=== PATIENT | female | born 1945 | race Caucasian/White ===

== ENCOUNTER 2023-05-28 10:50 | Outpatient (CLI) | payer BC, SELFPAY ==
--- NOTE | ~2023-05-28 | MR_ITS ---
MRI of the left knee Clinical history: Pain, effusion Technique: Coronal proton density and proton density-weighted images, sagittal proton-density and T2 fat-sat images, and axial proton-density fat-saturated images were acquired. Findings: Anterior and posterior cruciate ligaments are intact. Medial collateral ligament and the la teral collateral ligament complex are intact. Popliteus tendon is intact. There is radial tear at the posterior root of the medial meniscus. No lateral meniscal tear identifie d. There is diffuse grade IV chondromalacia the medial femoral condyle and at the lateral tibial plateau the joint line. There is a subchondral insufficiency fracture at the medial tibial plateau region wi th extensive amorphous surrounding marrow edema. Articular cartilage in the lateral compartment is we ll preserved. There is high-grade chondral lesion at the patellar apex, and mild to moderate chondral malacia the femoral trochlea. Extensor mechanism is intact. Small joint effusion present. Small Tinajero cyst present. There is subcut aneous soft tissue edema, nonspecific. Impression: Radial tear at the posterior root of the medial meniscus. Subchondral insufficiency fracture of the medial tibial plateau with extensive surrounding amorphous marrow edema. 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 Small joint effusion with small Tinajero's cyst. Reviewed, dictated and finalized at location . Impression: Radial tear at the posterior root of the medial meniscus. Subchondral insufficiency fracture of the medial tibial plateau with extensive surrounding amorphous marrow edema. 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 Small joint effusion with small Tinajero's cyst.
== END 2023-05-28 10:51 ==
LOC: MICIMG 10:52
PROVIDERS: PCP Nurse Practitioner Adult Health; Visit Provider Nurse Practitioner Adult Health
DX: M25.462 Effusion, left knee (principal); M94.262 Chondromalacia, left knee; S83.242A Other tear of medial meniscus, current injury, left knee, initial encounter; S82.132A Displaced fracture of medial condyle of left tibia, initial encounter for closed fracture; X58.XXXA Exposure to other specified factors, initial encounter
CPT/HCPCS: 73721

== ENCOUNTER 2023-06-17 09:24 | Outpatient (CLI) | payer BC, SELFPAY ==
--- NOTE | ~2023-06-17 | XR_ITS ---
XR knee LT min 4V 06/17/2023 09:47 Indication: Left knee pain Procedure: 4 views left knee Comparison: No prior studies for comparison. Findings: There is mild osteoarthritis of the left knee. No fracture, subluxation or dislocation. No joint effusion. No foreign bodies. Impression: 1: Mild osteoarthritis of the left knee. Reviewed, dictated and finalized at location B. Impression: 1: Mild osteoarthritis of the left knee.
== END 2023-06-17 09:25 | disposition home or self-care (01) ==
PROVIDERS: PCP Nurse Practitioner Adult Health; Visit Provider Orthopaedic Surgery
DX: M17.12 Unilateral primary osteoarthritis, left knee (principal); M25.562 Pain in left knee
CPT/HCPCS: 73564

== ENCOUNTER 2023-06-26 09:32 | Outpatient (RCR) | payer BC, SELFPAY ==
--- NOTE | 2023-06-26 12:20 | OPREHPOC ---
Outpatient Therapy Plan of Care This is a Multidisciplinary Plan of Care that may contain components documented by all disciplines (PT, OT, and ST.) PT Problem 1 PT Problem #1 Knowledge Deficit PT Goal 1 Goal The patient will be independent in a home exercise program. Target Visit 12 PT Problem 2 PT Problem #2 Pain PT Goal 1 Goal The patient will report no greater than 2/10 left knee pain with daily activities. Target Visit 12 PT Problem 3 PT Problem #3 Impaired Range of Motion PT Goal 1 Goal The patient will demonstrate 130 degrees of left knee flexion to return to squatting and kneeling. Target Visit 12 PT Problem 4 PT Problem #4 Impaired Functional Mobil PT Goal 1 Goal 1. The patient will demonstrate less than 30% self perceived disability per the LEFS. 2. The patient will be able to ambulate 1,200 feet during the 6 minute walk test. Target Visit 12
--- NOTE | 2023-06-26 12:20 | PTOPEVAL1 ---
Assessment and note entered by Jana Abreu, PT Evaluation Information Assessment Status Evaluation Diagnosis left knee medial meniscus tear Onset 04/23/23 Subjective Information Linda Newell reports she injured her left knee on 04/23/23 she went to a farm show and had to go down 4 flights of stairs. She was about half way down and twisted her left foot and felt a pop in her knee. She had immediate pain in the left knee and could not extend her knee or walk. She reports she went to Dr. Rocha who ordered a x-ray and MRI. She was told she has a medial meniscus tear and debris floating in her knee. She also is close to bone on bone so he does not want to do surgery until she needs a knee replacement. She had a cortisone injection and was referred to PT. She reports the injection took away the acute pain . She has difficulty bending her left knee, squatting, and kneeling. She can not perform all the cleaning and has difficulty walking long distances. She reports she is very fearful of injuring the knee more. Reported Pain Level Pain Score 3: Self Report Assessment PT Clinical Summary Linda Newell presents with left knee pain following a twisting injury sustained on 04/23/23. She has been diagnosed with a medial meniscus tear . She has difficulty with walking, bending the knee, kneeling and squatting leading to difficulty performing daily activities and chores. She objectively demonstrates tenderness at the left patella tendon, decreased left knee flexion AROM, decreased L > R knee and hip strength, altered gait, and decreased functional abilities. She will benefit from skilled PT to address these limitations. Plan of Care Interventions Electrical Stimulation,Hot Pack/Cold Pack,Manual Therapy,Neuro Re-education,Patient/Caregiver Educati,Therapeutic Activities,Therapeutic Exercise PT Services Indicated Yes Treatment Frequency and 3 times a week for 12 visits Duration These treatments will address the objective and functional deficits as defined above. The patient will be advanced safely and appropriately in order for the patient to progress towards his/her prior level of function. Additional exercises will be introduced and as well as a comprehensive home exercise program upon discharge, if needed, ?to ensure carryover of functional gains achieved in the clinic. This treatment plan has been reviewed and agreement upon by the patient.
--- NOTE | 2023-07-18 13:33 | OPREHPOC ---
Outpatient Therapy Plan of Care This is a Multidisciplinary Plan of Care that may contain components documented by all disciplines (PT, OT, and ST.) PT Problem 1 PT Problem #1 Knowledge Deficit PT Goal 1 Goal The patient will be independent in a home exercise program. Target Visit 12 Progress Met PT Problem 2 PT Problem #2 Pain PT Goal 1 Goal The patient will report no greater than 2/10 left knee pain with daily activities. Target Visit 12 Progress Partially Met PT Problem 3 PT Problem #3 Impaired Range of Motion PT Goal 1 Goal The patient will demonstrate 130 degrees of left knee flexion to return to squatting and kneeling. Target Visit 12 Progress Met PT Problem 4 PT Problem #4 Impaired Functional Mobil PT Goal 1 Goal 1. The patient will demonstrate less than 30% self perceived disability per the LEFS. progressing 2. The patient will be able to ambulate 1,200 feet during the 6 minute walk test. progressing Target Visit 12
--- NOTE | 2023-07-18 13:34 | PTOPPROGNS ---
Assessment and note entered by JT File, PT Evaluation Information Assessment Status Progress Diagnosis left knee medial meniscus tear Onset 04/23/23 Subjective Information patient reports she feels good today. she reports she has no pain. she reports her knee is improving, but reports she still would like to be able to kneel on the floor and sit back on her heels to clean house. Assessment PT Clinical Summary mrs. shelton presents to skilled PT for her 10th skilled therapy visit. she has been compliant with her HEP thus far in therapy. she displays improved rom of the L knee, and progress towards functional and pain goals. she would benefit from continued skilled PT to achieve her remaining goals, and functional ability to sit on knees to care for/clean home. Plan of Care Interventions Electrical Stimulation,Hot Pack/Cold Pack,Manual Therapy,Neuro Re-education,Patient/Caregiver Educati,Therapeutic Activities,Therapeutic Exercise PT Services Indicated Yes Treatment Frequency and continue skilled PT for 2 more visits per initial Duration POC These treatments will address the objective and functional deficits as defined above. The patient will be advanced safely and appropriately in order for the patient to progress towards his/her prior level of function. Additional exercises will be introduced and as well as a comprehensive home exercise program upon discharge, if needed, ?to ensure carryover of functional gains achieved in the clinic. This treatment plan has been reviewed and agreement upon by the patient.
--- NOTE | 2023-07-22 10:35 | PCPTNOTE ---
I reviewed the License Pending Therapist's documentation and agree with the findings.
--- NOTE | 2023-07-24 10:36 | OPREHPOC ---
Outpatient Therapy Plan of Care This is a Multidisciplinary Plan of Care that may contain components documented by all disciplines (PT, OT, and ST.) PT Problem 1 PT Problem #1 Knowledge Deficit PT Goal 1 Goal The patient will be independent in a home exercise program. Target Visit 12 Progress Met PT Problem 2 PT Problem #2 Pain PT Goal 1 Goal The patient will report no greater than 2/10 left knee pain with daily activities. Target Visit 12 Progress Met PT Problem 3 PT Problem #3 Impaired Range of Motion PT Goal 1 Goal The patient will demonstrate 130 degrees of left knee flexion to return to squatting and kneeling. Target Visit 12 Progress Met PT Problem 4 PT Problem #4 Impaired Functional Mobil PT Goal 1 Goal 1. The patient will demonstrate less than 30% self perceived disability per the LEFS. progressing 2. The patient will be able to ambulate 1,200 feet during the 6 minute walk test. progressing Target Visit 12 Progress Partially Met
--- NOTE | 2023-07-24 10:36 | PTOPDC ---
Assessment and note entered by JT File, PT Evaluation Information Assessment Status Discharge Diagnosis left knee medial meniscus tear Onset 04/23/23 Subjective Information patient reports she feels good today. she reports she has no pain. she reports she is back to driving and performing all prior level activities. she reports she is compliant with her HEP at home. she reports she is ready to DC therapy today. Reported Pain Level Pain Score 0: Self Report Pain Score 1: Self Report Assessment PT Clinical Summary mrs. shelton presents to skilled PT services for her 12th skilled PT visit. she presents today with no pain, full active rom, and normal L knee strength . she has met goals for hep performance, pain, rom as of this date. she has also made partial achievement of functional mobility goals. she will DC skilled PT today, and continue with HEP independent at home. Plan of Care PT Services Indicated Yes
--- NOTE | 2023-07-24 10:38 | PCPTNOTE ---
I reviewed the License Pending Therapist's documentation and agree with the findings.
== END 2023-07-24 10:45 | disposition home or self-care (01) ==
LOC: CHSPT 09:32
PROVIDERS: Visit Provider Orthopaedic Surgery
DX: S83.242D Other tear of medial meniscus, current injury, left knee, subsequent encounter (principal); S89.92XD Unspecified injury of left lower leg, subsequent encounter
CPT/HCPCS: 97014; 97110; 97112; 97150; 97161; 97530; G0283

== ENCOUNTER 2024-03-24 12:54 | Emergency (ER) | payer BC, SELFPAY ==
--- OUTSIDE RECORDS SUMMARY | 2024-03-24 13:49 | XMS_ITS | Encounter Summary ---
Author Organization [facility] Address [facility]. [place], [place] [address] [place] [address] Care Team Providers Care Commercial Lawn Specialist Name Role Phone Nithin Bowie NP Primary Care Provide r David Clifton MD Primary Care Provider [phone] Encounter Details Date Type Department Care Team (Late st Contact Info) Description 05/22/2023 mPATH Message Enc [facility] Family & Internal Medicine [address] [address] Nithin Bowie, TAI [address] [place] [address] Dr. [place], [place] [id number] MRI Order Social History Tobacco Use Types Packs/Day Years Used Date Smoking Tobacco: Never Smokeless Tobacco: Never Alcohol Use Standard Drinks/Week Comments Not Currently 0 (1 standard drink = 0.6 oz pur e alcohol) Comments Unknown Sex and Gender Information Value Date Recorded Sex Assigned at Not on file Legal Sex Female 11:53 AM CDT Gender Identity Not on file Sexual Orientation Not on file documented as of this encounter Plan of Treatment Not on file documented as of this encounter Visit Diagnoses Not on filedocumented in this encounter Care Teams Commercial Lawn Specialist Relationship Specialty Start Date End Date Nithin Bowie NP PCP - General NURSE PRACTITIONER ADULT HEALTH 05/14/23 09/14/23 [place] [address] [id number] PCP - General INTERNAL MEDICINE 09/15/23 documented as of this encounter
--- OUTSIDE RECORDS SUMMARY | 2024-03-24 13:49 | XMS_ITS | Clinical Summary ---
Author Organization [facility] Address [address] [place] [address] Phone Care Team Providers Care Desk Top Publisher Name Role Phone Sergio Steen MD Primary Care Provider [phone] Allergies Active Allergy Reactions Criticality Noted Date Comments Sulfa (Sulfonamide Antibiotics) Rash Low 07/2010 Medications ACETAMINOPHEN (TYLENOL ORAL) Take by mouth. Active enoxaparin (LOVENOX) 100 mg/mL subCUT Syrg Inject 0.899 mL by subcutaneous injection every 12 hours. 10 Syringe 0 1 Active warfarin (COUMADIN) 5 mg Oral tablet Take 2 Tabs by mouth Daily LATE. 30 Tab 6 1 Active warfarin (COUMADIN) 1 mg Oral tablet Take 1 Tab by mouth daily. 30 Tab 6 1 Active Active Problems Problem Noted Date Diagnosed Date MVP (mitral valve prolapse) 05/30/2010 Overview (06/04/2010): 06/04 Echo: EF 60-65%, structurally normal mitral valve, trivial MR, mild TR, PA 37 mmHg. Rheumatoid arthritis(714.0) 05/30/2010 DVT (deep venous thrombosis) 05/30/2010 Overview (01/11/2011): 1976 DVT in right calf during . 06/04 Venous Doppler: right leg negative, left leg with extensive, probably subacute DVT in calf & popliteal & femoral veins -> Lovenox -> warfarin 12/[address] Steen Palpitations 05/30/2010 Angioedema Overview (05/30/2010): environmental stimuli Family History Relation Name Status Comments Brother Alive murmur, no CAD Father (Age 62) NV at 48 Mother Alive CHF, [place] at 60 Sister Alive no CAD Social History Tobacco Use Types Packs/Day Years Used Date Smoking Tobacco: Former Cigarettes Q uit: 02/25/1968 Smokeless Tobacco: Never Alcohol Use Standard Drinks/Week Comments Yes 0 (1 standard drink = 0.6 oz pur e alcohol) rare Comments No Sex and Gender Information Value Date Recorded Sex Assigned at Not on file Legal Sex Female 4:38 AM X RAY PHYSICIAN Gender Identity Not on file Sexual Orientation Not on file 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 Not on file Not on file Not on vasyl e Last Filed Vital Signs Vital Sign Reading Time Taken Comments Blood Pressure 130/66 06/01/2010 1:47 PM CDT Pulse 85 06/01/2010 1:47 PM CDT Temperature 36.8 ??C (98.2 ??F) 06/01/2010 1:47 PM CD T Respiratory Rate 16 06/01/2010 1:47 PM CDT Oxygen Saturation 96% 06/01/2010 1:47 PM CDT Inhaled Oxygen Concentration - - Weight 89.9 kg (198 lb 3.2 oz) 06/01/2010 4:32 A M CDT Height 162.6 cm (5' 4 ) 05/31/2010 4:40 PM CDT Body Mass Index 34.02 05/31/2010 4:40 PM CDT Plan of Treatment Health Maintenance Due Date Last Done Comments DTAP/TDAP/TD VACCINES (1 - Tdap) 1964 PNEUMOCOCCAL VACCINE 65+ YEARS (1 of 1 - PCV) 10/02/18 96 ZOSTER VACCINE (1 of 2) 10/03/1995 OSTEOPOROSIS SCREENING 2010 RSV VACCINE (60+ or ) (1 - 1-dose 75+ series) 2020 INFLUENZA VACCINE (#1) 2023 Insurance [facility] [employer] Care Teams Desk Top Publisher Relationship Specialty Start Date End Date Sergio Steen MD PCP - General Gastroenterology 05/15/10
--- OUTSIDE RECORDS SUMMARY | 2024-03-24 13:49 | XMS_ITS | Continuity of Care Document ---
Author Organization [facility] Address [address] [place] [address] Phone Care Team Providers Care Artificial Breeding Distributor Name Role Phone Dru Cordova MD Unavailable Unavailable Procedures Procedure Date Office/outpatient visit,est, mod 2011 Injection, tendon origin/insertion Depo Medrol Methylprednisolone 40 MG inj Office/outpatient visit,new, mod 2011 X-ray exam finger(s), minimum 2 views Oc Advance Directives Directive Yes / No Effective Date File Name No Information Encounters Encounter Description Practice Location Reason(s) For Visit Diagnoses Date Provider Providers Copied on Encounter [facility], [address], [id number], tel:[phone] [employer] [facility] TRIGGER FINGER Dec- 0-201 2 Tasha Gonsales. [address], [facility] [address], [place], [place], [id number] , [place]. tel: [phone] Office/outpat ient visit,est, mod [facility], [address], [id number], [place] tel:[phone] [employer] [facility] No Information 2-201 2 Tasha Gonsales. [address], [place] [address], [place], [place], [id number] , [place]. tel: [phone] Office/outpat ient visit,new, mod [facility], [address], [place], [place], [id number], [place] tel:[phone] [facility] TRIGGER FINGERJOINT PAIN-HAND 2 Tasha Gonsales. [address] [facility], [place], [place], [id number] , [place]. tel:[phone] Family History Family Member Type Diagnosis Age At Onset No Information Payers Payer name Insurance type Covered green party ID Authorgodwin garcias(s) Rosario Jerzy [facility] [id number] Social History Type Description Quantity Date Captured Comments Sex Female Smoking Status No Information Chief Complaint And Reason For Visit No Information Reason For Referral Reason For Referral No Information History Of Present Illness Encounter Date Complaint History Of Prese nt Illness No Information Functional Status Date Functional Assessmen t No Information Instructions Date Instruction Additional Infor mation No Information Assessments Type Assessment Date No Information Patient Care Teams Name Effective Dates (start - stop) Status Members No Information
--- OUTSIDE RECORDS SUMMARY | 2024-03-24 13:49 | XMS_ITS | Clinical Summary ---
Author Organization [facility] Address [facility]. [place], [place] [address] [place] [address] Care Team Providers Care Facility Service Manager Name Role Phone David Clifton MD Primary Care Provider Allergies Active Allergy Reactions Criticality Noted Date Comments Sulfa Antibiotics Rash Low 05/30/2010 Medications losartan (COZAAR) 25 MG tabletIndicatio ns:Hypertension , essential Take 1 tablet (25 mg total) by mouth daily. Do not take if pressure is less than 145/85 30 tablet 4 Active Additional Information Patient not taking.Reported on 07/16/2023 aspirin 81 MG chewable tablet Chew 1 tablet (81 mg total) by mouth daily. Active losartan (COZAAR) 50 MG tabletIndicatio ns:Hypertension , essential Take 1 tablet (50 mg total) by mouth daily. 30 tablet 4 Active Active Problems Problem Noted Date Diagnosed Date Angioedema 05/19/2023 Overview (05/19/2023): environmental stimuli Deep vein thrombosis ([facility]) 1 Overview (05/19/2023): 1976 DVT in right calf during . 06/04 Venous Doppler: right leg negative, left leg with extensive, probably subacute DVT in calf & popliteal & femoral veins -> Lovenox -> warfarin 12/[address] Steen MVP (mitral valve prolapse) 05/30/2010 Overview (05/19/2023): 06/04 Echo: EF 60-65%, structurally normal mitral valve, trivial MR, mild TR, PA 37 mmHg. Palpitations 05/30/2010 Family History Medical History Relation Comments Cancer Father Lung Disease Father Alzheimer's disease Mother Cancer Mother Diabetes Mother Heart Mother Hypertension Mother Stroke Mother Relation Status Comments Father Mother Social History Tobacco Use Types Packs/Day Years Used Date Smoking Tobacco: Never Passive Smoke Exposure: Past Smokeless Tobacco: Never Tobacco Cessation:Counseling Given: No Alcohol Use Standard Drinks/Week Comments Not Currently 0 (1 standard drink = 0.6 oz pur e alcohol) Comments Unknown Sex and Gender Information Value Date Recorded Sex Assigned at Not on file Legal Sex Female 11:53 AM CDT Gender Identity Not on file Sexual Orientation Not on file Last Filed Vital Signs Vital Sign Reading Time Taken Comments Blood Pressure 177/86 09/03/2023 5:01 PM CDT Pulse 100 09/03/2023 4:29 PM CDT Temperature 36.4 ??C (97.6 ??F) 05/30/2023 10:49 AM C DT Respiratory Rate 16 05/30/2023 10:49 AM CDT Oxygen Saturation 96% 09/03/2023 4:29 PM CDT Inhaled Oxygen Concentration - - Weight 88.5 kg (195 lb) 09/03/2023 4:29 PM CDT Height 162.6 cm (5' 4 ) 05/30/2023 10:49 AM CDT Body Mass Index 33.47 05/30/2023 10:49 AM CDT Plan of Treatment Health Maintenance Due Date Last Done Comments PHQ-2 (Physician Mentasta) 1957 COVID-19 Vaccine (1 - 2023-2 5 season) 2023 Influenza Adult (#1) 2023 PHQ-2 (Physician Mentasta) 02/25/2024 Pneumococcal Vaccine: 65+ Ye ars (1 of 2 - PCV) 04/24/2024 Postponed from 10/02 (Patient Refused) DTaP, Tdap and Td Vaccines ( 1 - Tdap) 05/18/2024 06/04/2010 Postponed from 06/05 (Patient Refused) Dexa Scan (General) 05/18/2024 Postpone d from 2010 (Patient Refused) RSV Immunization or 60+ Years (1 - 1-dose 75+ series) 05/18/2024 Postponed from 2020 (Patient Refused) Zoster Vaccines (1 of 2) 05/18/2024 Pos tponed from 10/03/1995 (Patient Refused) Hepatitis C 05/18/2053 Postponed from 10/03/1963 (Patient Refused) Meningococcal B Vaccine Aged Out No l onger eligible based on patient's age to complete this topic Meningococcal Vaccine Aged Out No kelley makayla eligible based on patient's age to complete this topic RSV Immunizations Under 20 Months Aged Out No longer eligible based on patient's age to complete this topic Insurance MEDICARE PART A Care Teams Facility Service Manager Relationship Specialty [place] [address] [place] [address] PCP - General INTERNAL MEDICINE 09/15/23
--- OUTSIDE RECORDS SUMMARY | 2024-03-24 13:49 | XMS_ITS | Encounter Summary ---
Author Organization [facility] Address Counts include 234 beds at the [facility] [place] [address] [place] [address] Care Team Providers Care Manager Sharepoint Name Role Phone Nithin Bowie NP Primary Care Provide r David Clifton MD Primary Care Provider [phone] Encounter Details Date Type Department Care Team (Late st Contact Info) Description 06/03/2023 SocialBrot Message Enc [facility] Family & Internal Medicine [address] [address] Nithin Bowie, TAI [address] [place] [address] [place] [address] MRI Scan Results Social History Tobacco Use Types Packs/Day Years [...] on file documented as of this encounter Progress Notes * Holli Price MA - 06/03/2023 2:03 PM CDT Referral placed * Edith Joya MA - 06/03/2023 11:53 AM CDT Please advise - MRI scan in chart. documented in this encounter Plan of Treatment Not on file documented as of this encounter Visit Diagnoses Not on filedocumented in this encounter Care Teams Manager Sharepoint Relationship Specialty Start Date End Date Nithin Bowie NP PCP - General NURSE PRACTITIONER ADULT HEALTH 05/14/23 09/14/23 [place] [address] [address] PCP - General INTERNAL MEDICINE 09/15/23 documented as of this encounter
--- NOTE | 2024-03-24 19:48 | PC.NURSE ---
No answer when called for VS
--- OUTSIDE RECORDS SUMMARY | 2024-03-24 20:25 | XMS_ITS | Encounter Summary ---
Author Organization [facility] Address [facility] [place] [address] [place] [address] Care Team Providers Care Quiller Operator Name Role Phone Nithin Bwoie NP Primary Care Provide r David Clifton MD Primary Care Provider [phone] Encounter Details Date Type Department Care Team (Late st Contact Info) Description 06/03/2023 Xfiret Message Enc [facility] Family & Internal Medicine [address] [address] Nithin Bowie, TAI [address] [place] [address] [place] [address] MRI Scan Results Social History [...] on filedocumented in this encounter Care Teams Quiller Operator Relationship Specialty Start Date End Date Nithin Bowie NP PCP - General NURSE PRACTITIONER ADULT HEALTH 05/14/23 09/14/23 [place] [address] [address] PCP - General INTERNAL MEDICINE 09/15/23 documented as of this encounter
--- OUTSIDE RECORDS SUMMARY | 2024-03-24 20:25 | XMS_ITS | Encounter Summary ---
Author Organization [facility] Address [facility]. [place], [place] [id number] [place] [id number] Care Team Providers Care Law Professor Name Role Phone Nithin Bowie NP Primary Care Provide r David Clifton MD Primary Care Provider [phone] Encounter Details Date Type Department Care Team (Late st Contact Info) Description 05/22/2023 [employer] Message Enc [facility] Family & Internal Medicine [address] [id number] Nithin Bowie, TAI [address] [place] [address] Dr. Lela [place], [place] [id number] MRI Order Social History Tobacco Use Types [...] on filedocumented in this encounter Care Teams Law Professor Relationship Specialty Start Date End Date Nithin Bowie NP PCP - General NURSE PRACTITIONER ADULT HEALTH 05/14/23 09/14/23 [place] [id number] [id number] PCP - General INTERNAL MEDICINE 09/15/23 documented as of this encounter
--- OUTSIDE RECORDS SUMMARY | 2024-03-24 20:25 | XMS_ITS | Continuity of Care Document ---
Author Organization [facility] Address [address] [place] [address] Phone Care Team Providers Care Technical Testing Engineer Name Role Phone Dru Cordova MD Unavailable Unavailable Procedures Procedure Date Office/outpatient visit,est, mod 2011 Injection, tendon origin/insertion Depo Medrol Methylprednisolone 40 MG inj Office/outpatient visit,new, mod 2011 X-ray exam finger(s), minimum 2 views Oc Advance Directives Directive Yes / No Effective Date File Name No Information Encounters Encounter Description Practice Location Reason(s) For Visit Diagnoses Date Provider Providers Copied on Encounter [facility], [address], [id number], tel:[phone] [employer] [facility] TRIGGER FINGER Dec- 0-201 2 Tasha Gonsales. [address]50 [facility], [facility] [address], [place], [place], [id number] , [place]. tel: [phone] Office/outpat ient visit,est, mod [facility], [address], [id number], [place] tel:[phone] [employer] [facility] No Information 2-201 2 Tasha Gonsales. [address] [facility], [place] [address], [place], [place], [id number] , [place]. tel: [phone] Office/outpat ient visit,new, mod [facility], [address], [place], [place], [id number], [place] tel:[phone] [facility] TRIGGER FINGERJOINT PAIN-HAND 2 Tasha Gonsales. [address] [facility], [address], [place], [place], [id number] , [place]. tel:[phone] Family History Family Member Type Diagnosis Age At Onset No Information Payers Payer name Insurance type Covered green party ID Authorgodwin garcias(s) Rosario Jerzy [facility] [id number] Social History Type Description Quantity Date Captured [...]
--- OUTSIDE RECORDS SUMMARY | 2024-03-24 20:25 | XMS_ITS | Clinical Summary ---
Author Organization [facility] Address [facility]. [place], [place] [address] [place] [address] Care Team Providers Care Copying Machine Mechanic Name Role Phone David Clifton MD Primary [...] Overview (05/19/2023): environmental stimuli Deep vein thrombosis ([facility]) 1 Overview (05/19/2023): 1976 DVT in right [...] Due Date Last Done Comments PHQ-2 (Physician [place]) 1957 COVID-19 Vaccine (1 - 2023-2 5 season) 2023 Influenza Adult (#1) 2023 PHQ-2 (Physician [place]) 02/25/2024 Pneumococcal Vaccine: 65+ Ye ars (1 [...] topic Insurance MEDICARE PART A Care Teams Copying Machine Mechanic Relationship Specialty [place] [address] [place] [address] PCP - General INTERNAL MEDICINE 09/15/23
== END 2024-03-24 20:42 | disposition left against medical advice (07) ==
LOC: ANHED 20:23
DX: Z53.21 Procedure and treatment not carried out due to patient leaving prior to being seen by health care provider (principal)
CPT/HCPCS: 99199